=== PATIENT | female | born 1945 | race Caucasian/White ===

== ENCOUNTER 2017-10-10 14:49 | Emergency (ER) | payer MEDICARE, OTHER ==
[~2017-10-10] VITALS: Ht 162.6 cm; Wt 83.8 kg
[2017-10-10 15:20] VITALS: BP 145/69
== END 2017-10-10 16:23 | disposition home or self-care (01) ==
LOC: ER 14:49
DX: N93.9 Abnormal uterine and vaginal bleeding, unspecified (principal); I10 Essential (primary) hypertension
CPT/HCPCS: 99283

== ENCOUNTER 2019-10-16 11:25 | Emergency (ER) | payer MEDICARE, OTHER ==
[~2019-10-16] VITALS: Ht 165.1 cm; Wt 89.5 kg
[2019-10-16 12:02] LABS: BASOPHILS # (AUTO) 0.1 X10'3 (0-0.2); BASOPHILS % (AUTO) 0.9 % (0-1); EOSINOPHILS # (AUTO) 0.1 X10'3 (0-0.9); EOSINOPHILS % (AUTO) 0.9 % (0-6); HEMATOCRIT 40.9 % (35.0-45.0); HEMOGLOBIN 13.8 g/dl (12.0-16.0); LYMPHOCYTES # (AUTO) 1.5 X10'3 (1.1-4.8); LYMPHOCYTES % (AUTO) 13.7 % (21-51); MEAN CORPUSCULAR HEMOGLOBIN 30.9 PG (27.0-31.0); MEAN CORPUSCULAR HGB CONC 33.7 g/dL (33.0-36.5); MEAN CORPUSCULAR VOLUME 91.5 FL (78-98); MEAN PLATELET VOLUME 8.5 FL (7.4-10.4); MONOCYTES % (AUTO) 9.3 % (2-12); NEUTROPHILS # (AUTO) 8.4 X10'3 (1.8-7.7); NEUTROPHILS % (AUTO) 75.2 % (42-75); PLATELET COUNT 289 X10'3 (140-440); RED BLOOD COUNT 4.46 X10'6 (4.20-5.60); RED CELL DISTRIBUTION WIDTH 13.8 % (11.5-14.5); WHITE BLOOD COUNT 11.2 X10'3 (4.5-11.0)
[2019-10-16 12:11] LABS: ALANINE AMINOTRANSFERASE 19 U/L (12-78); ALKALINE PHOSPHATASE 99 IU/L (46-116); ANION GAP 11 (8-16); ASPARTATE AMINO TRANSFERASE 19 U/L (10-37); BILIRUBIN,TOTAL 0.6 MG/DL (0.1-1.0); BLOOD UREA NITROGEN 36 MG/DL (7-18); BUN/CREATININE RATIO 18.4 (6.6-38.0); CALCIUM 9.4 MG/DL (8.5-10.1); CHLORIDE 101 MMOL/L (99-107); CREATININE 1.96 MG/DL (0.40-0.90); GLUCOSE 120 MG/DL (70-104); LIPASE 148 U/L (73-393); POTASSIUM 3.6 MMOL/L (3.5-5.1); SODIUM 139 MMOL/L (135-145); TOTAL CARBON DIOXIDE 26.9 MMOL/L (24-32); TOTAL PROTEIN 7.9 G/DL (6.4-8.2); eGFR 25 ML/MIN
[2019-10-16 12:56] VITALS: BP 202/81
[2019-10-16 12:59] LABS: CLARITY,URINE CLOUDY (Clear); COLOR,URINE YELLOW (Yellow); GLUCOSE, URINE NEGATIVE (Neg); KETONES,URINE NEGATIVE (Neg); LEUKOCYTE ESTERASE ,URINE SMALL (Neg); NITRITES, URINE NEGATIVE (Neg); OCCULT BLOOD,URINE TRACE-INTACT (Neg); PROTEIN,URINE NEGATIVE (Neg); UROBILINOGEN,URINE 0.2 E.U/dL (0.2-1.0)
[2019-10-16 13:03] LABS: UA COLLECTION TYPE CLN CATCH MIDSTREAM
[2019-10-16 13:04] LABS: SQUAMOUS EPITHELIAL CELL,UR MODERATE /LPF (FEW)
[2019-10-16] MEDS ORDERED: SUCR1TAB34 PO (13:04)
[2019-10-16 13:05] LABS: BACTERIA,URINE 2+ /HPF (Neg); RBC,URINE 0-2 /HPF (0-2); WBC,URINE 0-4 /HPF (0-4)
== END 2019-10-16 13:27 | disposition home or self-care (01) ==
LOC: ER 11:25
DX: K29.00 Acute gastritis without bleeding (principal); I10 Essential (primary) hypertension; Z90.49 Acquired absence of other specified parts of digestive tract; Z79.899 Other long term (current) drug therapy
CPT/HCPCS: 36415; 80053; 81001; 83690; 85025; 87077; 87088; 87186; 99283

== ENCOUNTER 2020-07-24 15:31 | Inpatient (IN) | payer MEDICARE, OTHER ==
[~2020-07-24] VITALS: Ht 165.1 cm; Wt 95.5 kg
[~2020-07-24 15:31] MED LIST: SUCR1TAB34 PO
[2020-07-24 16:26] LABS: BASOPHILS # (AUTO) 0.1 X10'3 (0-0.2); BASOPHILS % (AUTO) 0.9 % (0-1); EOSINOPHILS % (AUTO) 0.3 % (0-6); HEMATOCRIT 36.9 % (35.0-45.0); HEMOGLOBIN 12.3 g/dl (12.0-16.0); LYMPHOCYTES # (AUTO) 0.8 X10'3 (1.1-4.8); LYMPHOCYTES % (AUTO) 7.8 % (21-51); MEAN CORPUSCULAR HEMOGLOBIN 31.3 PG (27.0-31.0); MEAN CORPUSCULAR HGB CONC 33.4 g/dL (33.0-36.5); MEAN CORPUSCULAR VOLUME 93.6 FL (78-98); MEAN PLATELET VOLUME 8.2 FL (7.4-10.4); MONOCYTES # (AUTO) 0.6 X10'3 (0-0.9); MONOCYTES % (AUTO) 5.8 % (2-12); NEUTROPHILS # (AUTO) 8.9 X10'3 (1.8-7.7); NEUTROPHILS % (AUTO) 85.2 % (42-75); PLATELET COUNT 257 X10'3 (140-440); RED BLOOD COUNT 3.94 X10'6 (4.20-5.60); WHITE BLOOD COUNT 10.5 X10'3 (4.5-11.0)
[2020-07-24 16:41] LABS: ALANINE AMINOTRANSFERASE 30 U/L (12-78); ALBUMIN 3.8 G/DL (3.4-5.0); ALKALINE PHOSPHATASE 93 IU/L (46-116); ANION GAP 13 (8-16); ASPARTATE AMINO TRANSFERASE 29 U/L (10-37); BILIRUBIN,TOTAL 0.7 MG/DL (0.1-1.0); BLOOD UREA NITROGEN 29 MG/DL (7-18); BUN/CREATININE RATIO 20.6 (6.6-38.0); CALCIUM 8.6 MG/DL (8.5-10.1); CHLORIDE 106 MMOL/L (99-107); CREATININE 1.41 MG/DL (0.40-0.90); GLUCOSE 144 MG/DL (70-104); POTASSIUM 3.6 MMOL/L (3.5-5.1); SODIUM 142 MMOL/L (135-145); TOTAL CARBON DIOXIDE 23.3 MMOL/L (24-32); TOTAL PROTEIN 7.5 G/DL (6.4-8.2); eGFR 36 ML/MIN
[2020-07-24] MEDS ORDERED: furosemide 10 MG/1 ML 10ml inj IV ONE (16:55)
[2020-07-24] MEDS ORDERED: ATOR10TA87 PO (17:31)
[2020-07-24] MEDS ORDERED: NEBI10TA2 PO (17:31)
[2020-07-24] MEDS ORDERED: HYDR12.55 PO (17:31)
[2020-07-24] MEDS ORDERED: LOSA100T3 PO (17:31)
[2020-07-24] MEDS ORDERED: CHOL100046 PO (17:31)
[2020-07-24] MEDS ORDERED: ASPI-10 PO (17:31)
[2020-07-24] MEDS ORDERED: cloNIDine 0.1 mg tablet PO ONE (17:35)
[2020-07-24] MEDS ORDERED: hydrALAZINE 20mg/ml inj. IV ONE (17:45)
[2020-07-24 18:27] LABS: CLARITY,URINE CLEAR (Clear); COLOR,URINE YELLOW (Yellow); GLUCOSE, URINE NEGATIVE (Neg); KETONES,URINE NEGATIVE (Neg); LEUKOCYTE ESTERASE ,URINE SMALL (Neg); NITRITES, URINE NEGATIVE (Neg); OCCULT BLOOD,URINE TRACE-LYSED (Neg); PROTEIN,URINE NEGATIVE (Neg); UROBILINOGEN,URINE 0.2 E.U/dL (0.2-1.0)
[2020-07-24 18:35] LABS: UA COLLECTION TYPE CLN CATCH MIDSTREAM
[2020-07-24 18:36] LABS: BACTERIA,URINE FEW /HPF (Neg); RBC,URINE 0-2 /HPF (0-2); SQUAMOUS EPITHELIAL CELL,UR FEW /LPF (FEW); WBC,URINE 0-4 /HPF (0-4)
--- NOTE | 2020-07-24 19:01 | NUR ---
Pt started having dry heaves and attempting to vomit in the sink. Provider is aware.
[2020-07-24] MEDS ORDERED: ondansetron/PF 4mg/2ml inj IV ONE (19:15)
[2020-07-24] MEDS ORDERED: HYDROcodone/acetaminophen 5mg/325mg tablet PO PRN (20:00)
[2020-07-24] MEDS ORDERED: magnesium hydroxide 30ml (MOM) UD suspension PO PRN (20:00)
[2020-07-24] MEDS ORDERED: potassium Cl 20 mEq SR tablet PO PRN ×2 (20:00)
[2020-07-24] MEDS ORDERED: mag hydrox/Alum hydrox/simeth 30ml oral suspension PO PRN (20:00)
[2020-07-24] MEDS ORDERED: acetaminophen 325mg tablet PO PRN (20:00)
[2020-07-24] MEDS: K and/or MAG REPLACEMENT MC SCH (20:00)
[2020-07-24] MEDS: docusate sod 100mg capsule PO SCH (20:00)
[2020-07-24] MEDS ORDERED: magnesium 2GM in 50ml NS 50 ML IV PRN (20:00)
[2020-07-24] MEDS ORDERED: magnesium 4gm in 100ml NS 100 ML IV PRN (20:00)
[2020-07-24] MEDS ORDERED: potassium CL 10mEq/100ml bag 100 ML IV PRN ×2 (20:00)
[2020-07-24] MEDS ORDERED: ondansetron/PF 4mg/2ml inj IV PRN (20:00)
[2020-07-24] MEDS: enoxaparin 40mg/0.4ml syringe SQ SCH (21:52)
--- NOTE | 2020-07-24 22:45 | NUR ---
Pt placed in hospital bed for comfort.
--- NOTE | 2020-07-25 00:52 | NUR ---
Pts HR 110-115, otherwise vss. pt awaiting ipa. on hospital bed. denies any needs at this time.
--- NOTE | 2020-07-25 07:47 | NUR ---
UP TO BR STEADY ON HER FEET
[2020-07-25] MEDS ORDERED: furosemide 40mg/4ml inj IV SCH (08:00)
[2020-07-25] MEDS: K and/or MAG REPLACEMENT MC SCH ×2 (08:00→20:00)
[2020-07-25] MEDS ORDERED: HYDROchlorothiazide 12.5mg capsule PO SCH (08:00)
[2020-07-25] MEDS: docusate sod 100mg capsule PO SCH ×2 (09:12→20:17)
[2020-07-25] MEDS: aspirin 325mg tablet PO SCH (09:12)
[2020-07-25] MEDS: atorvastatin 10mg tablet PO SCH (09:13)
[2020-07-25] MEDS: losartan 50mg tablet PO SCH (09:43)
[2020-07-25 11:33] LABS: BASOPHILS # (AUTO) 0.1 X10'3 (0-0.2); BASOPHILS % (AUTO) 0.8 % (0-1); EOSINOPHILS # (AUTO) 0.1 X10'3 (0-0.9); EOSINOPHILS % (AUTO) 1.3 % (0-6); HEMATOCRIT 32.2 % (35.0-45.0); LYMPHOCYTES # (AUTO) 0.9 X10'3 (1.1-4.8); LYMPHOCYTES % (AUTO) 12.9 % (21-51); MEAN CORPUSCULAR HEMOGLOBIN 31.9 PG (27.0-31.0); MEAN CORPUSCULAR HGB CONC 34.2 g/dL (33.0-36.5); MEAN CORPUSCULAR VOLUME 93.4 FL (78-98); MEAN PLATELET VOLUME 7.5 FL (7.4-10.4); MONOCYTES # (AUTO) 0.5 X10'3 (0-0.9); MONOCYTES % (AUTO) 8.1 % (2-12); NEUTROPHILS # (AUTO) 5.1 X10'3 (1.8-7.7); NEUTROPHILS % (AUTO) 76.9 % (42-75); PLATELET COUNT 189 X10'3 (140-440); RED BLOOD COUNT 3.45 X10'6 (4.20-5.60); RED CELL DISTRIBUTION WIDTH 14.1 % (11.5-14.5); WHITE BLOOD COUNT 6.7 X10'3 (4.5-11.0)
[2020-07-25 11:48] LABS: ALANINE AMINOTRANSFERASE 27 U/L (12-78); ALBUMIN 3.2 G/DL (3.4-5.0); ALKALINE PHOSPHATASE 75 IU/L (46-116); ANION GAP 7 (8-16); ASPARTATE AMINO TRANSFERASE 23 U/L (10-37); BILIRUBIN,TOTAL 0.6 MG/DL (0.1-1.0); BLOOD UREA NITROGEN 38 MG/DL (7-18); BUN/CREATININE RATIO 18.6 (6.6-38.0); CALCIUM 8.6 MG/DL (8.5-10.1); CHLORIDE 107 MMOL/L (99-107); CREATININE 2.04 MG/DL (0.40-0.90); GLUCOSE 99 MG/DL (70-104); SODIUM 141 MMOL/L (135-145); TOTAL CARBON DIOXIDE 27.1 MMOL/L (24-32); TOTAL PROTEIN 6.4 G/DL (6.4-8.2); eGFR 24 ML/MIN
[2020-07-25 11:52] LABS: MAGNESIUM 1.3 MG/DL (1.5-2.4)
[2020-07-25] MEDS: cloNIDine 0.1 mg tablet PO SCH ×2 (13:23→20:16)
[2020-07-25 15:10] VITALS: BP 116/58
[2020-07-25] MEDS: hyDRALAzine 10mg tablet PO SCH ×2 (17:18→23:16)
[2020-07-25] MEDS: furosemide 40mg/4ml inj IV SCH (17:19)
[2020-07-25 18:00] VITALS: BP 148/69
[2020-07-25] MEDS ORDERED: pneumococcal 23-VAL P-sac vacc 25 mcg/0.5ml vial IMVAC ONE (18:00)
--- NOTE | 2020-07-25 18:38 | NUR ---
Patient in room PCU 3028. I have received report from Olivia LOZA and had the opportunity to ask questions and assume patient care.
--- NOTE | 2020-07-25 18:41 | NUR ---
Problems reprioritized. Patient report given, questions answered & plan of care reviewed with DENIA LARSEN.
[2020-07-25] MEDS ORDERED: metoprolol tartrate 50mg tablet PO SCH (20:11)
[2020-07-25] MEDS: magnesium Cl slow-release 64mg tablet PO PRN (20:16)
[2020-07-25] MEDS: enoxaparin 40mg/0.4ml syringe SQ SCH (20:18)
[2020-07-25 22:00] VITALS: BP 129/61
--- NOTE | 2020-07-26 01:50 | NUR ---
PAged MD Rush regarding rhythm change. PAGER ID: [phone] MESSAGE: Re: Zari Segundo. Rm: [id number]. Patient in & out of A. fib w/ no history. Rate is controlled. [id number]. Bobby LOZA
[2020-07-26 02:00] VITALS: BP 126/76
[2020-07-26 05:39] LABS: BASOPHILS # (AUTO) 0.1 X10'3 (0-0.2); BASOPHILS % (AUTO) 0.9 % (0-1); EOSINOPHILS # (AUTO) 0.2 X10'3 (0-0.9); HEMATOCRIT 30.6 % (35.0-45.0); HEMOGLOBIN 10.3 g/dl (12.0-16.0); LYMPHOCYTES # (AUTO) 1.2 X10'3 (1.1-4.8); LYMPHOCYTES % (AUTO) 19.8 % (21-51); MEAN CORPUSCULAR HEMOGLOBIN 31.2 PG (27.0-31.0); MEAN CORPUSCULAR HGB CONC 33.6 g/dL (33.0-36.5); MEAN PLATELET VOLUME 8.3 FL (7.4-10.4); MONOCYTES # (AUTO) 0.5 X10'3 (0-0.9); MONOCYTES % (AUTO) 8.9 % (2-12); NEUTROPHILS # (AUTO) 3.9 X10'3 (1.8-7.7); NEUTROPHILS % (AUTO) 67.4 % (42-75); PLATELET COUNT 175 X10'3 (140-440); RED BLOOD COUNT 3.29 X10'6 (4.20-5.60); RED CELL DISTRIBUTION WIDTH 14.2 % (11.5-14.5); WHITE BLOOD COUNT 5.8 X10'3 (4.5-11.0)
[2020-07-26 06:00] VITALS: BP 155/96
--- NOTE | 2020-07-26 06:19 | NUR ---
Problems reprioritized. Patient report given, questions answered & plan of care reviewed with Beatrice LOZA.
[2020-07-26 06:57] LABS: ALANINE AMINOTRANSFERASE 23 U/L (12-78); ALBUMIN 3.1 G/DL (3.4-5.0); ALKALINE PHOSPHATASE 68 IU/L (46-116); ANION GAP 9 (8-16); ASPARTATE AMINO TRANSFERASE 22 U/L (10-37); BILIRUBIN,TOTAL 0.6 MG/DL (0.1-1.0); BLOOD UREA NITROGEN 46 MG/DL (7-18); BUN/CREATININE RATIO 20.5 (6.6-38.0); CALCIUM 8.7 MG/DL (8.5-10.1); CHLORIDE 105 MMOL/L (99-107); CREATININE 2.24 MG/DL (0.40-0.90); GLUCOSE 93 MG/DL (70-104); MAGNESIUM 1.3 MG/DL (1.5-2.4); POTASSIUM 3.9 MMOL/L (3.5-5.1); SODIUM 141 MMOL/L (135-145); TOTAL CARBON DIOXIDE 26.7 MMOL/L (24-32); TOTAL PROTEIN 6.2 G/DL (6.4-8.2); eGFR 21 ML/MIN
[2020-07-26] MEDS: furosemide 40mg/4ml inj IV SCH (09:19)
[2020-07-26] MEDS: losartan 50mg tablet PO SCH (09:20)
[2020-07-26] MEDS: docusate sod 100mg capsule PO SCH (09:20)
[2020-07-26] MEDS: aspirin 325mg tablet PO SCH (09:21)
[2020-07-26] MEDS: cloNIDine 0.1 mg tablet PO SCH (09:21)
[2020-07-26] MEDS: atorvastatin 10mg tablet PO SCH (09:21)
[2020-07-26] MEDS: hyDRALAzine 10mg tablet PO SCH (09:22)
[2020-07-26] MEDS: magnesium Cl slow-release 64mg tablet PO PRN (09:23)
[2020-07-26 11:00] VITALS: BP 159/96
[2020-07-26] MEDS ORDERED: METO50TA16 PO (11:24)
[2020-07-26] MEDS ORDERED: FURO20TA4 PO (11:24)
[2020-07-26] MEDS ORDERED: hyDRALAzine tablet PO (11:24)
[2020-07-26] MEDS ORDERED: CIPR250T4 PO (11:25)
== END 2020-07-26 14:40 | disposition home or self-care (01) | DRG 305 ==
LOC: ER 15:32 → ED HOLD 19:56 → PCU 3S 07-25 15:05
PROVIDERS: ADMIT Family Medicine; ATTEND Internal Medicine
PROC: 3E0234Z Introduction of Serum, Toxoid and Vaccine into Muscle, Percutaneous Approach (ICD-10-PCS; principal; 2020-07-25)
DX: I16.0 Hypertensive urgency (principal); I50.30 Unspecified diastolic (congestive) heart failure; N39.0 Urinary tract infection, site not specified; I13.0 Hypertensive heart and chronic kidney disease with heart failure and stage 1 through stage 4 chronic kidney disease, or unspecified chronic kidney disease; E66.9 Obesity, unspecified; E78.5 Hyperlipidemia, unspecified; R00.0 Tachycardia, unspecified; N18.30 Chronic kidney disease, stage 3 unspecified; Z20.828 Contact with and (suspected) exposure to other viral communicable diseases; Z87.11 Personal history of peptic ulcer disease; Z68.35 Body mass index [BMI] 35.0-35.9, adult; Z90.49 Acquired absence of other specified parts of digestive tract; Z23 Encounter for immunization; Z79.899 Other long term (current) drug therapy; Z79.82 Long term (current) use of aspirin
CPT/HCPCS: 36415; 71045; 80053; 81001; 83605; 83735; 83880; 84145; 84484; 85025; 87077; 87081; 87088; 87186; 87635; 93005; 93306; 93308; 96374; 96375; 99285; C9803; G0378; J0360; J1650; J1940; J2405

== ENCOUNTER 2021-03-24 10:12 | Day surgery (SDC) | payer MEDICARE, OTHER ==
[2021-03-23 15:55] LABS: BASOPHILS % (AUTO) 0.8 % (0-1); EOSINOPHILS # (AUTO) 0.1 X10'3 (0-0.9); EOSINOPHILS % (AUTO) 2.1 % (0-6); HEMATOCRIT 35.9 % (35.0-45.0); HEMOGLOBIN 11.7 g/dl (12.0-16.0); LYMPHOCYTES # (AUTO) 1.1 X10'3 (1.1-4.8); LYMPHOCYTES % (AUTO) 18.1 % (21-51); MEAN CORPUSCULAR HEMOGLOBIN 29.5 PG (27.0-31.0); MEAN CORPUSCULAR HGB CONC 32.6 g/dL (33.0-36.5); MEAN CORPUSCULAR VOLUME 90.5 FL (78-98); MEAN PLATELET VOLUME 7.6 FL (7.4-10.4); MONOCYTES # (AUTO) 0.5 X10'3 (0-0.9); NEUTROPHILS # (AUTO) 4.1 X10'3 (1.8-7.7); PLATELET COUNT 258 X10'3 (140-440); RED BLOOD COUNT 3.97 X10'6 (4.20-5.60); RED CELL DISTRIBUTION WIDTH 15.2 % (11.5-14.5); WHITE BLOOD COUNT 5.9 X10'3 (4.5-11.0)
[2021-03-23 16:03] LABS: ALBUMIN 3.5 G/DL (3.4-5.0); ANION GAP 9 (8-16); BLOOD UREA NITROGEN 10 MG/DL (7-18); BUN/CREATININE RATIO 8.5 (6.6-38.0); CALCIUM 8.7 MG/DL (8.5-10.1); CHLORIDE 106 MMOL/L (99-107); CREATININE 1.17 MG/DL (0.40-0.90); GLUCOSE 104 MG/DL (70-104); POTASSIUM 3.9 MMOL/L (3.5-5.1); SODIUM 142 MMOL/L (135-145); TOTAL CARBON DIOXIDE 27.4 MMOL/L (24-32); eGFR 45 ML/MIN
[~2021-03-24] VITALS: Ht 167.6 cm; Wt 85.3 kg
[2021-03-24] VITALS (9 sets, daily range): BP systolic 141–186; BP diastolic 64–97
[~2021-03-24 10:12] MED LIST changes: +ALBU8.5H17 INH; +ASPI-10 PO; +ATOR10TA87 PO; +AZIT500T9 PO; +CHOL100046 PO; +CLON-330 PO; +DILT60TA3 PO; +LABE200T5 PO; -SUCR1TAB34 PO
[2021-03-24] MEDS ORDERED: LORazepam 0.5 MG tablet PO ONE (10:35)
[2021-03-24] MEDS ORDERED: diphenhydrAMINE 25mg capsule PO ONE (10:35)
[2021-03-24] MEDS ORDERED: atropine 0.1mg/ml 10ml syringe IV ONE (10:35)
[2021-03-24] MEDS ORDERED: amiodarone 150mg/dext, iso-os 100 ML IV ONE (10:35)
[2021-03-24] MEDS ORDERED: morphine 10mg/ml inj. IV ONE (10:35)
[2021-03-24] MEDS ORDERED: MIDAZolam 1mg/ml 10ml vial IV ONE (10:35)
[2021-03-24] MEDS ORDERED: DILT120T4 PO (10:39)
[2021-03-24] MEDS ORDERED: ALB0.5UD IH (10:40)
[2021-03-24] MEDS ORDERED: APIX5TAB3 PO (10:41)
== END 2021-03-24 12:05 | disposition home or self-care (01) ==
LOC: SSTAY O 10:12
PROVIDERS: ATTEND Internal Medicine Cardiovascular Disease
DX: I48.19 Other persistent atrial fibrillation (principal); I08.3 Combined rheumatic disorders of mitral, aortic and tricuspid valves; E78.5 Hyperlipidemia, unspecified; I16.0 Hypertensive urgency; I12.9 Hypertensive chronic kidney disease with stage 1 through stage 4 chronic kidney disease, or unspecified chronic kidney disease; I50.33 Acute on chronic diastolic (congestive) heart failure; N18.9 Chronic kidney disease, unspecified; I25.2 Old myocardial infarction; K21.9 Gastro-esophageal reflux disease without esophagitis; F41.0 Panic disorder [episodic paroxysmal anxiety]; F17.211 Nicotine dependence, cigarettes, in remission; E66.9 Obesity, unspecified; Z68.30 Body mass index [BMI] 30.0-30.9, adult; Z98.890 Other specified postprocedural states; Z79.899 Other long term (current) drug therapy; Z87.01 Personal history of pneumonia (recurrent); Z98.49 Cataract extraction status, unspecified eye; Z72.89 Other problems related to lifestyle; Z88.1 Allergy status to other antibiotic agents; Z88.8 Allergy status to other drugs, medicaments and biological substances; Z82.49 Family history of ischemic heart disease and other diseases of the circulatory system
CPT/HCPCS: 36415; 80048; 85025; 85610; 92960; 93005; 94799; J2250; J2270

== ENCOUNTER → 2023-09-29 | Outpatient (CLI) | payer MEDICARE, OTHER ==
[~2023-09-29] MED LIST changes: +ALB0.5UD IH; -ALBU8.5H17 INH; +APIX5TAB3 PO; -ASPI-10 PO; -AZIT500T9 PO; +DILT120T4 PO; -DILT60TA3 PO; -LABE200T5 PO
== END | disposition home or self-care (01) ==
LOC: 64 CT 13:08
PROVIDERS: ATTEND Family Medicine
DX: I51.7 Cardiomegaly (principal); J94.8 Other specified pleural conditions; R06.02 Shortness of breath; I25.10 Atherosclerotic heart disease of native coronary artery without angina pectoris
CPT/HCPCS: 71250; 94010